=== PATIENT | male | born 1995 | race Two or more races ===

== ENCOUNTER 2024-05-31 15:28 | Emergency (ER) | payer OTHER, MEDICAID ==
[~2024-05-31] VITALS: Ht 177.8 cm; Wt 80.9 kg
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
[2024-05-31] MEDS ORDERED: IBUP-1455 PO (17:17)
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
[2024-05-31 19:34] VITALS: BP 115/62; PULSE 84; RESP 18; TEMP 97.9; O2SAT 96
== END 2024-05-31 19:36 | disposition home or self-care (01) ==
LOC: ER 15:28
DX: S42.001A Fracture of unspecified part of right clavicle, initial encounter for closed fracture (principal); R51.9 Headache, unspecified; Z88.6 Allergy status to analgesic agent; W18.49XA Other slipping, tripping and stumbling without falling, initial encounter; Y93.89 Activity, other specified; Y92.89 Other specified places as the place of occurrence of the external cause; Y99.8 Other external cause status
CPT/HCPCS: 70450; 73000